=== PATIENT | female | born 1975 | race Caucasian/White ===

== ENCOUNTER 2018-04-28 08:31 | Emergency (ER) | payer MEDICAID ==
[2018-04-28] MEDS: LORAZEPAM 1 MG TAB PO (09:13)
[2018-04-28] MEDS: ACETAMINOPHEN 325 MG TAB PO (09:13)
== END 2018-04-28 09:54 | disposition home or self-care (01) ==
LOC: FTE 08:31
DX: M54.2 Cervicalgia (principal)
CPT/HCPCS: 72040; 81025; 99283-25